=== PATIENT | female | born 1970 | race African-American/Black ===

== ENCOUNTER 2023-10-16 10:10 | Emergency (ER) | payer MEDICARE, SELFPAY ==
[2023-10-16 10:12] VITALS: BP 111/75
[2023-10-16 10:32] VITALS: BMI 33.6
[2023-10-16 10:34] VITALS: BP 111/69
[2023-10-16 10:55] LABS: % Basophils 0.5 % (0-2); % Immature Granulocytes 0.5 % (0-0.5); % Lymphocytes 17.5 % (20.5-51.1); % Monocytes 14.3 % (1.7-9.3); % Neutrophils 62.2 % (42.2-75.2); Absolute Eosinophils 0.2 10^3/uL (0-0.7); Absolute Lymphocytes 0.7 10^3/uL (1.2-3.4); Absolute Monocytes 0.6 10^3/uL (0.1-0.6); Absolute Neutrophils 2.5 10^3/uL (1.4-6.5); Hematocrit 29.8 % (37.0-47.0); Hemoglobin 9.6 g/dL (12.0-16.0); Mean Corp Hgb Conc. 32.2 g/dL (33.0-37.0); Mean Corpuscular Hgb 26.8 pg (27.0-31.0); Mean Corpuscular Volume 83.2 fL (81.0-99.0); Mean Platelet Volume 9.8 fL (7.4-10.4); Nucleated Red Blood Cells % 0 %; Platelet Count 389 10^3/uL (130-400); Red Blood Cell Count 3.58 10^6/uL (4.20-5.40); Red Cell Dist. Width 13.4 % (11.5-14.5)
[2023-10-16 11:00] VITALS: BP 111/74
--- NOTE | 2023-10-16 11:20 | ED.GENMED ---
History of Present Illness
General
Chief Complaint: Bowel Problem
Source: patient
Exam Limitations: none
Time Seen by Provider: 10/16/23 10:17
Nursing documentation reviewed up to this point in time: agreed with
Travel History
Have you had any contact with someone who has COVID-19?: No
Do you have any symptoms of coronavirus? Fever > 100 degrees, chills, cough, shortness of breath, sore throat, loss of taste or smell, muscle aches, or headache?: No
History of Present Illness
History of Present Illness:
53-year-old female with past medical history of PE currently on Xarelto, constipation diabetes presenting to the emergency department with lack of bowel movements over the past 12 days has had some mild abdominal discomfort and nausea and a few
episodes of vomiting over the past few days. She was sent in for CT scan by her nursing facility.
Review of Systems
Review of Systems
Allergies reviewed?: Yes
All Other Systems: ROS reviewed and negative except as documented in HPI and ROS
Phy Exam
Physical Exam
Physical Exam:
GENERAL: Alert , in no apparent distress
EYE: pupils equal and reactive
NECK: Supple, no significant adenopathy.
ENT: o/p clr, mmm.
CARDIAC: Regular rate and rhythm .
LUNGS: Clear breath sounds bilaterally, no acute respiratory distress, no wheezes/rales/rhonchi
ABDOMEN: Mildly distended with vague discomfort no specific focal pain no peritoneal signs no guarding.
NEUROLOGICAL: Alert and oriented, no focal neuro deficits
SKIN: Warm and dry, skin intact.
MUSCULOSKELETAL: No edema, well perfused.
PSYCH: Normal and appropriate interaction.
Course
Orders/Labs/Results
Orders:
Orders
10/16/23 10:25
CT Abd/Pel (IV only)-DH only Urgent
Comment:
Reason For Exam: no bm x12 days, now with pain, vomiting
10/16/23 10:43
Complete Blood Count/With Diff Urgent
Comprehensive Metabolic Panel Urgent
10/16/23 13:20
Urinalysis Reflex To Culture Urgent
Date Specimen was Collected: 10/16/23
Time Specimen was Collected: 12:56
Urine Microscopic Reflex Cult Urgent
10/16/23 14:20
Doxycycline [Vibramycin] 100 mg PO NOW STA
Abnormal Lab Results
10/16/23 10/16/23
10:43 13:20
WBC 4.0 L 10^3/uL
(4.8-10.8)
RBC 3.58 L 10^6/uL
(4.20-5.40)
Hgb 9.6 L g/dL
(12.0-16.0)
Hct 29.8 L %
(37.0-47.0)
MCH 26.8 L pg
(27.0-31.0)
MCHC 32.2 L g/dL
(33.0-37.0)
Absolute Lymphs (auto) 0.7 L 10^3/uL
(1.2-3.4)
Lymphocytes % 17.5 L %
(20.5-51.1)
Monocytes % 14.3 H %
(1.7-9.3)
Glucose 111 H mg/dl
(70-99)
AST 38 H U/L
(14-36)
Alkaline Phosphatase 239 H U/L
(38-126)
Leukocyte Esterase Rfl Trace A
(Negative)
10/16/23 10:43
10/16/23 10:43
Vital Signs
Initial and Last Documented VS:
Initial Vital Signs
Temp Pulse Resp BP Pulse Ox
98.9 F 94 18 111/75 95
10/16/23 10:12 10/16/23 10:12 10/16/23 10:12 10/16/23 10:12 10/16/23 10:12
Last Documented Vital Signs
Temp Pulse Resp BP Pulse Ox
98.9 F 78 14 94/70 94
10/16/23 10:12 10/16/23 14:00 10/16/23 14:00 10/16/23 14:00 10/16/23 14:00
MDM/Problems Addressed
MDM/Problems Addressed:
53-year-old female presenting to the emergency department today with concerns of abdominal distention and constipation over the past 12 days. Patient concerned that she is now developing abdominal pain and vomiting. Concern for SBO plan for CT
scan for further assessment. CT scan with multiple incidental findings. Patient claims he was aware of masses and hypodense lesions to the liver and spleen. She will follow-up closely as an outpatient. Is currently being treated for sarcoidosis.
Additional findings of the lungs are more of a chronic process however cannot exclude pneumonia she has had a cough denies specific fevers will be treated with antibiotic but otherwise she will need close follow-up for this as well. She was given
a report of her CT scan for close outpatient follow-up. Otherwise patient is acute symptoms associate with constipation stable for outpatient management return precautions given.
*Critical Care Note
Total Time (30-74mins, 75-104mins- exclusive of procedures): Not Applicable
ED Attending Note
-
Portions of this chart may have been created with voice recognition software.� Occasional wrong word or��sound alike� substitutions may have occurred due to the inherent limitations of voice recognition software.
Discharge Plan
Departure
Patient Disposition: Home (Routine Discharge)
Date of Disposition: 10/16/23
Time of Disposition: 14:21
Patient with high blood pressure during this ER visit?: No
Condition: Good
Covid-19: Not Applicable
Discharge Problem:
Constipation, Liver mass, Splenic mass, Pneumonia
Instructions: Constipation, Adult (DC)
Prescriptions:
New
doxycycline monohydrate 100 mg capsule
100 mg PO BID 7 Days Qty: 14 0RF
polyethylene glycol 3350 [Miralax] 17 gram powder in packet
17 g PO DAILY Qty: 30 0RF
magnesium citrate Solution
150 ml PO DAILY PRN (Reason: Constipation) Qty: 296 0RF
No Action
quetiapine 25 mg Tablet
25 mg PO DAILY
atorvastatin 40 mg Tablet
40 mg PO DAILY
buspirone 5 mg Tablet
5 mg PO BID
prednisone 5 mg Tablet
5 mg PO DAILY
Theragen Tablet
1 tab PO DAILY
melatonin 3 mg Tablet
3 mg PO HS
acetaminophen 500 mg Tablet
1,000 mg PO TID
ondansetron 8 mg Tablet,Disintegrating
8 mg PO DAILY
magnesium hydroxide [Milk of Magnesia] 400 mg/5 mL Suspension
30 ml PO G61HABN PRN (Reason: day 3 no bm)
calcium carbonate [Calcium 500] 500 mg calcium (1,250 mg) Tablet
500 mg PO HS
meclizine 25 mg Tablet
25 mg PO Q8HPRN PRN (Reason: dizziness)
bisacodyl 10 mg Suppository
10 mg MI DAILYPRN PRN (Reason: if mom is ineffective)
metformin 1,000 mg Tablet
1,000 mg PO BID
Fleet Enema 19-7 gram/118 mL Enema
118 ml MI DAILYPRN PRN (Reason: if bisacodyl is ineffective)
gabapentin 100 mg Capsule
200 mg PO DAILY
cholecalciferol (vitamin D3) [Vitamin D3] 50 mcg (2,000 unit) Tablet
50 mcg PO HS
rivaroxaban 10 mg Tablet
10 mg PO QPM
aspirin 81 mg Capsule
81 mg PO DAILY
albuterol-budesonide 90-80 mcg/actuation Hfa Aerosol Inhaler
2 inh INHALATION R Q6HPRN PRN (Reason: sob)
Referrals:
Eliseo Steinberg DO [Family Provider] -
Activity Restrictions/Additional Instructions:
You came to the emergency department today with concerns of constipation. Here CT scan did not show bowel obstruction but did show constipation. Please follow the bowel regiment prescribed. Otherwise there was a possible pneumonia please take
doxycycline twice daily over the next week and closely follow-up as an outpatient with the incidental finding seen on the CT scan. Return to the emergency department any worsening, new or concerning symptoms.
Interventions
Interventions:
*Risk Screen - Suicide Last Done: 10/16/23 10:35
*General Assessment Last Done: 10/16/23 10:35
*Neglect/Abuse Screening Last Done: 10/16/23 10:35
ED- Fall Risk Assessment Last Done: 10/16/23 10:35
*ED COVID-19 Vaccine History Last Done: 10/16/23 10:35
YU-Rodchz-Fnydfhirme Assessment Last Done: 10/16/23 10:35
Discharge Date and Time
Print Language: PALESTINIAN
[2023-10-16 11:28] LABS: ALT (SGPT) 35 U/L (0-35); AST (SGOT) 38 U/L (14-36); Albumin 3.9 g/dl (3.5-5.0); Alkaline Phosphatase 239 U/L (38-126); Blood Urea Nitrogen 16 mg/dl (7-17); Calcium 10.2 mg/dl (8.4-10.2); Carbon Dioxide 30 mmol/L (22-30); Chloride 102 mmol/L (98-107); Estimated Creatinine Clearance 103 ml/min; Glucose 111 mg/dl (70-99); Potassium 3.7 mmol/L (3.5-5.1); Sodium 140 mmol/L (135-145); Total Bilirubin 0.7 mg/dl (0.2-1.3); eGFR > 60.00
[2023-10-16 12:00] VITALS: BP 98/64
[2023-10-16 13:21] VITALS: BP 103/61
[2023-10-16 13:55] LABS: Urine Albumin Negative (Neg - Trace); Urine Bilirubin Negative (Negative); Urine Character Clear (Clear); Urine Color Yellow; Urine Glucose Negative (Negative); Urine Ketone Negative (Negative); Urine Leukocyte Trace (Negative); Urine Nitrite Negative (Negative); Urine Occult Blood Negative (Negative); Urine Specific Gravity 1.015 (<1.030); Urine Urobilinogen Negative (Neg - 1+)
[2023-10-16 14:00] VITALS: BP 94/70
[2023-10-16 14:52] LABS: Urine Red Blood Cell 0-2 /HPF (0-2); Urine White Cell 0-2 /HPF (0-5)
[2023-10-16] MEDS: VIBRAMYCIN 100 MG PO (15:43)
== END 2023-10-16 16:08 | disposition home or self-care (01) ==
LOC: EMR 10:10
PROVIDERS: Physician Assistant; EMERGENCY PHYSICIAN Emergency Medicine; FAMILY PHYSICIAN Internal Medicine
DX: K59.00 Constipation, unspecified (principal); R16.2 Hepatomegaly with splenomegaly, not elsewhere classified; J18.9 Pneumonia, unspecified organism; D86.9 Sarcoidosis, unspecified; E11.9 Type 2 diabetes mellitus without complications; Z79.01 Long term (current) use of anticoagulants; Z86.711 Personal history of pulmonary embolism
CPT/HCPCS: 99284; 74177; 80053; 81003; 81015; 85025; Q9967

== ENCOUNTER 2023-10-28 15:16 | Emergency (ER) | payer MEDICARE, SELFPAY ==
[2023-10-28] VITALS (14 sets, daily range): BP systolic 95–138; BP diastolic 44–115
--- NOTE | 2023-10-28 17:08 | ED.GENMED ---
History of Present Illness
General
Chief Complaint: Abdominal Symptoms
Source: patient, ambulance crew and custodial
Exam Limitations: none
Time Seen by Provider: 10/28/23 17:04
Nursing documentation reviewed up to this point in time: agreed with
History of Present Illness
History of Present Illness:
Patient to ED from [facility] for abdominal pain and vomiting. Seen in ED in september for same. Treated for constipation. Brought to ED by EMS for eval. Denies feve/chills.
Past History
Past History
ED Past Medical History: Hypercholesterolemia, NIDDM, Psychiatric (dissociative disorder, conversion disorder, depression) and Other (DVT, sarcoidosis)
Review of Systems
Review of Systems
Allergies reviewed?: Yes
All Other Systems: ROS reviewed and negative except as documented in HPI and ROS
Constitutional: Reports no symptoms
EENT: Reports no symptoms
Respiratory: Reports no symptoms
Cardiac: Reports no symptoms
ABD/GI: Reports abdominal pain, nausea and vomiting
: Reports no symptoms
Musculoskeletal: Reports no symptoms
Skin: Reports no symptoms
Neurological: Reports no symptoms
Psychiatric: Reports no symptoms
Phy Exam
General Physical Exam
General Presentation: well appearing and no apparent distress
General age: appears stated age
General Skin: warm and dry
General Habitus: normal
General Mental: alert
Pulmonary Exam
Pulmonary Exam: no respiratory distress and chest non tender
Gastrointestinal Exam
Gastrointestinal Exam: normal bowel sounds, soft, no organomegaly, no pulsatile mass and non distended
Palpation: generalized: Mild tenderness
Musculoskeletal Exam
Musculoskeletal Exam: full ROM and neuro vasc intact
Skin Exam
Skin Exam: normal color, warm/dry and no rash
Psychiatric Exam
Psychiatric Exam: normal mood/affect
Course
Orders/Labs/Results
Orders:
Orders
10/28/23 15:45
Complete Blood Count/With Diff Urgent
10/28/23 17:34
Comprehensive Metabolic Panel Urgent
Lipase Urgent
10/28/23 18:28
CT Abd/pelvis W Iv Cont Urgent
Comment:
Reason For Exam: abdominal pain, vomiting.
10/28/23 19:55
Urinalysis Reflex To Culture Urgent
Date Specimen was Collected: 10/28/23
Time Specimen was Collected: 19:54
10/28/23 22:18
Polyethylene Glycol Powder [Miralax] 17 grams PO NOW STA
10/28/23 22:51
Magnesium Citrate [Citroma] 300 ml PO ONCE ONE
Abnormal Lab Results
10/28/23 10/28/23
15:45 17:34
WBC 4.0 L 10^3/uL
(4.8-10.8)
RBC 3.74 L 10^6/uL
(4.20-5.40)
Hgb 9.9 L g/dL
(12.0-16.0)
Hct 31.9 L %
(37.0-47.0)
MCH 26.5 L pg
(27.0-31.0)
MCHC 31.0 L g/dL
(33.0-37.0)
Absolute Lymphs (auto) 0.7 L 10^3/uL
(1.2-3.4)
Lymphocytes % 16.9 L %
(20.5-51.1)
Monocytes % 12.3 H %
(1.7-9.3)
Calcium 11.1 H mg/dl
(8.4-10.2)
AST 63 H U/L
(14-36)
ALT 67 H U/L
(0-35)
Alkaline Phosphatase 272 H U/L
(38-126)
10/28/23 15:45
10/28/23 17:34
Vital Signs
Initial and Last Documented VS:
Initial Vital Signs
Temp Pulse Resp BP Pulse Ox
98.5 F 93 18 107/45 94
10/28/23 15:22 10/28/23 15:22 10/28/23 15:22 10/28/23 15:22 10/28/23 15:22
Last Documented Vital Signs
Temp Pulse Resp BP Pulse Ox
98.5 F 93 24 111/77 97
10/28/23 15:22 10/29/23 05:40 10/29/23 05:40 10/29/23 05:40 10/29/23 05:40
*Radiology
Radiology exam reviewed: radiology read reviewed
*Pulse Oximetry
Patient hypoxic: no
*Critical Care Note
Total Time (30-74mins, 75-104mins- exclusive of procedures): Not Applicable
ED Attending Note
-
Portions of this chart may have been created with voice recognition software.� Occasional wrong word or��sound alike� substitutions may have occurred due to the inherent limitations of voice recognition software.
Discharge Plan
Departure
Patient Disposition: Home (Routine Discharge)
Date of Disposition: 10/28/23
Time of Disposition: 22:15
Patient with high blood pressure during this ER visit?: No
Condition: Good
Covid-19: Not Applicable
Discharge Problem:
Constipation
Instructions: Constipation, Adult (DC)
Prescriptions:
No Action
quetiapine 25 mg Tablet
25 mg PO DAILY
atorvastatin 40 mg Tablet
40 mg PO DAILY
buspirone 5 mg Tablet
5 mg PO BID
prednisone 5 mg Tablet
5 mg PO DAILY
Theragen Tablet
1 tab PO DAILY
melatonin 3 mg Tablet
3 mg PO HS
acetaminophen 500 mg Tablet
1,000 mg PO TID MDD 3000 mg
magnesium hydroxide [Milk of Magnesia] 400 mg/5 mL Suspension
30 ml PO DAILYPRN PRN (Reason: day 3 no bm)
calcium carbonate [Calcium 500] 500 mg calcium (1,250 mg) Tablet
500 mg PO HS
meclizine 25 mg Tablet
25 mg PO Q8HPRN PRN (Reason: dizziness)
bisacodyl 10 mg Suppository
10 mg MS DAILYPRN PRN (Reason: if mom is ineffective)
metformin 1,000 mg Tablet
1,000 mg PO BID
Fleet Enema 19-7 gram/118 mL Enema
118 ml MS DAILYPRN PRN (Reason: if bisacodyl is ineffective)
gabapentin 100 mg Capsule
200 mg PO DAILY
cholecalciferol (vitamin D3) [Vitamin D3] 50 mcg (2,000 unit) Tablet
50 mcg PO HS
rivaroxaban 10 mg Tablet
10 mg PO QPM
aspirin 81 mg Capsule
81 mg PO DAILY
albuterol-budesonide 90-80 mcg/actuation Hfa Aerosol Inhaler
2 inh INHALATION R Q6HPRN PRN (Reason: sob)
polyethylene glycol 3350 [Miralax] 17 gram powder in packet
17 g PO DAILY Qty: 30 0RF
magnesium citrate Solution
150 ml PO DAILY PRN (Reason: Constipation) Qty: 296 0RF
ondansetron HCl [Zofran] 8 mg Tablet
8 mg PO DAILY
sennosides-docusate sodium [Senna-S] 8.6-50 mg Tablet
2 tab-cap PO BID
bisacodyl 10 mg Suppository
10 mg MS HS
Patient Comments:
10/28/23: starting on 10/26/23, insert 1 suppository at bedtime for 3 days
Referrals:
Eliseo Steinberg, DO [Family Provider] - Tomorrow
Activity Restrictions/Additional Instructions:
Increase miralax to 17g BID
Interventions
Interventions:
*Risk Screen - Suicide Last Done: 10/28/23 15:22
*General Assessment Last Done: 10/28/23 15:22
*Neglect/Abuse Screening Last Done: 10/28/23 15:22
ED- Fall Risk Assessment Last Done: 10/29/23 05:45
*ED COVID-19 Vaccine History Last Done: 10/28/23 15:22
*Nursing Disposition Last Done: 10/29/23 05:45
KK-Fxovwt-Frawndrzuz Assessment Last Done: 10/28/23 17:06
Discharge Date and Time
Discharge Date/Time: 10/29/23 05:45
Print Language: TELUGU
[2023-10-28 17:41] LABS: % Basophils 0.3 % (0-2); % Eosinophils 3.3 % (0-6); % Immature Granulocytes 0.3 % (0-0.5); % Lymphocytes 16.9 % (20.5-51.1); % Monocytes 12.3 % (1.7-9.3); % Neutrophils 66.9 % (42.2-75.2); Absolute Eosinophils 0.1 10^3/uL (0-0.7); Absolute Lymphocytes 0.7 10^3/uL (1.2-3.4); Absolute Monocytes 0.5 10^3/uL (0.1-0.6); Absolute Neutrophils 2.7 10^3/uL (1.4-6.5); Hematocrit 31.9 % (37.0-47.0); Hemoglobin 9.9 g/dL (12.0-16.0); Mean Corpuscular Hgb 26.5 pg (27.0-31.0); Mean Corpuscular Volume 85.3 fL (81.0-99.0); Mean Platelet Volume 10.3 fL (7.4-10.4); Nucleated Red Blood Cells % 0 %; Platelet Count 375 10^3/uL (130-400); Red Blood Cell Count 3.74 10^6/uL (4.20-5.40); Red Cell Dist. Width 13.5 % (11.5-14.5)
[2023-10-28 18:00] LABS: ALT (SGPT) 67 U/L (0-35); AST (SGOT) 63 U/L (14-36); Alkaline Phosphatase 272 U/L (38-126); Blood Urea Nitrogen 16 mg/dl (7-17); Calcium 11.1 mg/dl (8.4-10.2); Carbon Dioxide 30 mmol/L (22-30); Chloride 100 mmol/L (98-107); Glucose 90 mg/dl (70-99); Lipase 26 U/L (23-300); Potassium 4.4 mmol/L (3.5-5.1); Sodium 138 mmol/L (135-145); Total Bilirubin 0.7 mg/dl (0.2-1.3); Total Protein 8.1 g/dl (6.3-8.2); eGFR > 60.00
[2023-10-28 20:03] LABS: Urine Albumin Negative (Neg - Trace); Urine Bilirubin Negative (Negative); Urine Character Clear (Clear); Urine Color Yellow; Urine Glucose Negative (Negative); Urine Ketone Negative (Negative); Urine Leukocyte Negative (Negative); Urine Nitrite Negative (Negative); Urine Occult Blood Negative (Negative); Urine Specific Gravity 1.015 (<1.030); Urine Urobilinogen Negative (Neg - 1+)
[2023-10-28] MEDS: CITROMA 300 ML PO (23:02)
[2023-10-29] VITALS (7 sets, daily range): BP systolic 90–111; BP diastolic 50–77
== END 2023-10-29 05:45 | disposition home or self-care (01) ==
LOC: EMR 15:16
PROVIDERS: Nurse Practitioner; EMERGENCY PHYSICIAN Student in an Organized Health Care Education/Training Program; FAMILY PHYSICIAN Internal Medicine
DX: K59.00 Constipation, unspecified (principal); R10.9 Unspecified abdominal pain; R11.2 Nausea with vomiting, unspecified; E11.9 Type 2 diabetes mellitus without complications; E78.00 Pure hypercholesterolemia, unspecified; F32.A Depression, unspecified; R01.1 Cardiac murmur, unspecified; D86.9 Sarcoidosis, unspecified; F44.9 Dissociative and conversion disorder, unspecified; Z79.82 Long term (current) use of aspirin; Z86.718 Personal history of other venous thrombosis and embolism; Z85.72 Personal history of non-Hodgkin lymphomas; Z86.73 Personal history of transient ischemic attack (TIA), and cerebral infarction without residual deficits; Z87.891 Personal history of nicotine dependence
CPT/HCPCS: 99285; 74177; 80053; 81003; 83690; 85025; Q9967